=== PATIENT | male | born 1980 | race Caucasian/White ===

== ENCOUNTER 2022-10-03 16:51 | Emergency (ER) | payer SELFPAY ==
[2022-10-03 17:09] VITALS: BP 128/84; PULSE 104; RESP 14; TEMP 97.8; BMI 25.8
[2022-10-03] MEDS ORDERED: FOLIC ACID INJECTION - 1 MG, THIAMINE HCL 100 MG, MULTIVIT INJECTION ADULT 10 ML in SOD... IVPB ONE (17:24)
[2022-10-03] MEDS ORDERED: THIAMINE HCL 200 MG/2 ML VIAL IVPB ONE (17:54)
[2022-10-03 18:00] LABS: VENOUS BASE EXCESS -4.2 mmol/L (-2-2); VENOUS PCO2 41.8 mmHg (38-52); VENOUS PH 7.33 (7.310-7.410)
[2022-10-03 18:19] LABS: POTASSIUM 3.8 mmol/L (3.5-5.1)
[2022-10-03 18:22] LABS: CALCIUM 8.9 mg/dL (8.5-10.1)
[2022-10-03 18:23] LABS: ALBUMIN 4.4 g/dl (3.4-5.0)
[2022-10-03 18:26] LABS: CREATININE 0.8 mg/dL (0.55-1.3)
[2022-10-03 18:28] LABS: BILIRUBIN,TOTAL 0.2 mg/dL (0.2-1); TOT PROT 8.2 g/dl (6.4-8.2)
[2022-10-03] MEDS ORDERED: THIAMINE HCL 200 MG/2 ML VIAL ONE (18:46)
[2022-10-03 19:15] LABS: MAGNESIUM 2.4 mg/dL (1.8-2.4)
[2022-10-03 19:28] LABS: BASO % 0.6 % (0-2.0); EOS % 1.1 % (0-4.5); HEMATOCRIT 50.1 % (35.4-49); HEMOGLOBIN 17.5 GM/dL (11.7-16.9); LYMPH % 31.3 % (8-40); MCH 31.6 pg (25.7-33.7); MEAN CELL VOLUME 90.2 fl (80-96); MEAN PLT VOLUME 7.4 fl (7.5-11.1); MONO % 4.4 % (3.8-10.2); NEUT % 62.6 % (42.8-82.8); PLATELET COUNT 355 10^3/uL (134-434); RBC 5.56 M/mm3 (4.00-5.60); RDW 13.5 % (11.9-15.9); WHITE BLOOD COUNT 6.6 K/mm3 (4.0-10.0)
== END 2022-10-03 21:57 | disposition home or self-care (01) ==
LOC: JER 16:51
PROC: 3E033GC Introduction of Other Therapeutic Substance into Peripheral Vein, Percutaneous Approach (ICD-10-PCS; principal; 2022-10-03)
PROC: 3E033GC Introduction of Other Therapeutic Substance into Peripheral Vein, Percutaneous Approach (ICD-10-PCS; 2022-10-03)
PROC: 3E033GC Introduction of Other Therapeutic Substance into Peripheral Vein, Percutaneous Approach (ICD-10-PCS; 2022-10-03)
PROC: 3E033GC Introduction of Other Therapeutic Substance into Peripheral Vein, Percutaneous Approach (ICD-10-PCS; 2022-10-03)
PROC: 3E033GC Introduction of Other Therapeutic Substance into Peripheral Vein, Percutaneous Approach (ICD-10-PCS; 2022-10-03)
PROC: 3E033GC Introduction of Other Therapeutic Substance into Peripheral Vein, Percutaneous Approach (ICD-10-PCS; 2022-10-03)
PROC: 3E033GC Introduction of Other Therapeutic Substance into Peripheral Vein, Percutaneous Approach (ICD-10-PCS; 2022-10-03)
PROC: 3E033GC Introduction of Other Therapeutic Substance into Peripheral Vein, Percutaneous Approach (ICD-10-PCS; 2022-10-03)
PROC: 3E033GC Introduction of Other Therapeutic Substance into Peripheral Vein, Percutaneous Approach (ICD-10-PCS; 2022-10-03)
DX: F10.129 Alcohol abuse with intoxication, unspecified (principal); W19.XXXA Unspecified fall, initial encounter; Y90.8 Blood alcohol level of 240 mg/100 ml or more
CPT/HCPCS: 36415; 70450-TC; 72125-TC; 80053; 80307; 82803; 83690; 83735; 84100; 85025; 99284-25